=== PATIENT | male | born 1960 | race Caucasian/White ===

== ENCOUNTER 2023-08-15 08:01 | Emergency (ER) | payer BC, SELFPAY ==
[2023-08-15 08:07] VITALS: BP 155/101; PULSE 85; RESP 14; TEMP 36.1; O2SAT 96; BMI 27.5
--- NOTE | 2023-08-15 08:19 | CT_ITS ---
Patient: TK WELLER Facility:?[facility] Patient ID:?[id number] Site Patient ID:?[id number] Site :?[id number] Study:?CT-Abdomen/Pelvis WITHOUT-08/15/2023 9:12:59 AM Ordering Physician:JOHN Final Report: INDICATION: Lower back pain. Stones. COMPARISON: None TECHNIQUE: CT examination of the abdomen and pelvis was performed without intravenous contrast. Thin section axial images were obtained from the lung bases through the pubic symphysis. Oral contrast was not administered. Please note that all CT scans at this facility use dose modulation, iterative reconstruction, and/or weight-based dosing when appropriate to reduce radiation dose to as low as reasonably achievable. FINDINGS: LUNG BASES: The lung bases as visualized appear normal.The heart size is normal at the lung bases. LIVER/BILIARY SYSTEM:The liver is normal in size and configuration given the lack of intravenous contrast. There is no visible focal mass and there is no intra- or extra hepatic biliary ductal dilatation.The gall bladder appears normal. ADRENALS: Normal non-contrast appearance KIDNEYS, URETERS and BLADDER:Normal-sized kidneys. No visible calculi. No evidence of current or recent obstructive uropathy on either side. 1 centimeter low-density right renal lesion likely a cyst. The bladder as visualized appears normal SPLEEN:Normal non-contrast appearance. PANCREAS: Normal non-contrast appearance. RETROPERITONEUM and MESENTERY: There is no mass, adenopathy or aortic aneurysm. Atherosclerotic vascular calcification GASTROINTESTINAL SYSTEM: There is no evidence of diverticulitis, colitis, mechanical obstruction, or appendicitis. The small bowel as visualized appears normal.Diverticulosis, especially sigmoid PELVIS: No mass, adenopathy or free fluid. OSSEOUS STRUCTURES and ABDOMINAL WALL: Degenerative changes. There is a grade 1 to grade 2 spondylolytic spondylolisthesis of L5 on S1 with associated disc degeneration at L5-S1 and facet disease.No significant abdominal wall defect. INCIDENTAL: There is an incidentally visualized right scrotal hydrocele, less likely a large cystic lesion of the epididymis measuring 5.9 centimeter IMPRESSION: 1. There is no evidence of calcified calculus. There is no evidence of current or recent obstructive uropathy. 2. Diverticulosis. No evidence of diverticulitis, colitis or obstruction. 3. Grade 1-2 spondylolytic spondylolisthesis of L5 on S1 with associated disc degeneration at L5-S1 and facet osteoarthritis. 4. There is a low-density area within the right hemiscrotum measuring 5.9 centimeters likely a hydrocele. Please note that all CT scans at this facility use dose modulation, iterative reconstruction, and/or weight-based dosing when appropriate to reduce radiation dose to as low as reasonably achievable. Dictated by Álvaro Mcintyre MD @ 08/15/2023 9:22:56 AM Signed by:?Álvaro Mcintyre MD @08/15/2023 9:22:56 AM (Electronic Signature)
--- NOTE | 2023-08-15 08:20 | ED_ITS ---
HPI - Back Pain/Injury General Date Seen: 08/15/23 Chief Complaint: Back Injury/Pain Stated Complaint: Lower R back pain Time Seen by Provider: 08/15/23 08:19 Source: patient Mode of arrival: ambulatory Limitations: no limitations History of Present Illness HPI Narrative: Is a 62-year-old female presenting for right low flank pain. Is he states symptoms have been gone for 6 or 7 days in his is a small amount of pain that ranges well as to sharp in nature. States it is difficult to sit still with the pain. He is most comfortable standing up versus lying down and sitting down. Still thinks he has had something similar back in the late 90s but remembers that going away on its own. Went to urgent care yesterday and was given Toradol and had an x-ray done. He did state the Toradol helped quite a bit. Has been taking ibuprofen and Tylenol at home. No history of kidney stones. Denies fevers, chills, saddle anesthesia, urinary retention, incontinence, dysuria, hematuria. Pain does not radiate anywhere. Does not remember injuring himself prior to this occurring. Related Data Previous Rx's Medication Instructions Recorded prednisone 20 mg tablet 40 mg (2 x 20 mg) PO QDAY 5 days 08/14/23 #10 tabs cyclobenzaprine 10 mg tablet 10 mg PO TID PRN muscle spasm #15 08/15/23 tabs ketorolac 10 mg tablet 10 mg PO TID PRN pain 5 days #15 08/15/23 tabs Allergies Allergy/AdvReac Type Severity Reaction Status Date / Time No Known Drug Allergies Allergy Verified 08/14/23 09:49 Review of Systems Status of ROS: Reports: 10 or more systems reviewed and unremarkable except as noted in History and below [facility] Social History Smoking Status: Never smoker How often do you have a drink containing alcohol: monthly or less AUDIT-C Alcohol total score: 1 Non-prescribed substance use: denies use Exam Narrative: Exam Narrative: Const: Well-nourished, Well-developed, in moderate distress Eyes: PERRL, no conjunctival injection, and symmetrical lids HENT: Atraumatic external nose and ears. Moist mucous membranes. Neck: Symmetric, trachea midline, No thyromegaly. CVS: RRR, No murmurs or gallops. Peripheral pulses 2+ and equal in all extremities RESP: Unlabored respiratory effort. Clear to auscultation bilaterally. GI: Nontender, Nondistended, No rebound or guarding. MSK:Extremities w/o deformity, Normal Active ROM, right low back tenderness to palpation Skin: Warm, Dry. No rashes or lesions. Neuro: Normal Muscle tone, No focal neurological deficits. Psych: Awake, Alert, & Oriented x3. Appropriate mood and affect. Const: Vital Signs, click to edit/add: Vital Signs - 24 hr 08/15/23 08:07 Temperature 97.0 F L Pulse Rate [Pulse Oximeter] 85 Respiratory Rate 14 Blood Pressure [Ri ght Upper Arm] 155/101 H Pulse Oximetry 96 Oxygen Delivery Me thod Room Air Course Vital Signs Vital signs: Initial Vital Signs Temperature 97.0 F L 08/15/23 08:07 Temperature Source Temporal Artery Scan 08/15/23 08:07 Pulse Rate 85 08/15/23 08:07 Pulse Rhythm Regular 08/15/23 08:07 Respiratory Rate 14 08/15/23 08:07 Blood Pressure 155/101 H 08/15/23 08:07 Blood Pressure Mean 119 H 08/15/23 08:07 Blood Pressure Position Sitting 08/15/23 08:07 Pulse Oximetry 96 08/15/23 08:07 Oxygen Delivery Method Room Air 08/15/23 08:07 Vital Signs Temperature 97.0 F L 08/15/23 08:07 Pulse Rate 85 08/15/23 08:07 Respiratory Rate 14 08/15/23 08:07 Blood Pressure 155/101 H 08/15/23 08:07 Pulse Oximetry 96 08/15/23 08:07 Oxygen Delivery Method Room Air 08/15/23 08:07 Temperature 97.0 F L 08/15/23 08:07 Pulse Rate 85 08/15/23 08:07 Respiratory Rate 14 08/15/23 08:07 Blood Pressure 155/101 H 08/15/23 08:07 Pulse Oximetry 96 08/15/23 08:07 Oxygen Delivery Method Room Air 08/15/23 08:07 Medications Administered Medications: Discontinued Medications Generic Name Dose Route Start Last Admin Trade Name Freq PRN Reason Stop Dose Admin Ketorolac Tromethamine 30 mg 08/15/23 08:19 08/15/23 08:31 Ketorolac 30 Mg/Ml Inj IM 08/15/23 08:20 30 mg ONCE ONE Administration Morphine Sulfate 4 mg 08/15/23 08:27 08/15/23 08:35 Morphine 4 Mg/Ml Inj IM 08/15/23 08:28 Not Given ONCE ONE MDM - Back Pain/Injury MDM Narrative Medical decision making narrative: Patient is 62-year-old male presenting for back pain. The location and description of the symptoms is be some concern for a kidney stone. We will do a CT scan to better evaluate this. He is not having any urinary symptoms. Pain does not radiate anywhere. No red flag signs for cauda equina. CT scan returned showing grade 1-2 spondylitic spondylolisthesis of L5 on S1 with associated disc degeneration. This is consistent with where his pain is. This is likely was causing his pain. No evidence of nephrolithiasis. Patient was feeling better after the Toradol. He did not want morphine. Patient will be discharged home at this time and will follow-up with primary care provider on Friday if symptoms persist. He is agreeable to this plan. Imaging Data CT scan abdomen and pelvis: Radiologist's impression: 1. There is no evidence of calcified calculus. There is no evidence of current or recent obstructive uropathy. 2. Diverticulosis. No evidence of diverticulitis, colitis or obstruction. 3. Grade 1-2 spondylolytic spondylolisthesis of L5 on S1 with associated disc degeneration at L5-S1 and facet osteoarthritis. 4. There is a low-density area within the right hemiscrotum measuring 5.9 centimeters likely a hydrocele. Please note that all CT scans at this facility use dose modulation, iterative reconstruction, and/or weight-based dosing when appropriate to reduce radiation dose to as low as reasonably achievable. Dictated by Álvaro Mcintyre MD @ 08/15/2023 9:22:56 AM Discharge Plan Discharge Clinical Impression: Strain of lumbar region Qualifiers: Encounter type: initial encounter Qualified Code(s): S39.012A - Strain of muscle, fascia and tendon of lower back, initial encounter Patient Disposition: Home, Self-Care Condition: Improved Instructions: Back Pain (ED) Additional Instructions: I will prescribe you Toradol which you can take along side Tylenol. Do not take ibuprofen when your taking the Toradol as they are in the same class of drugs and can cause gastric ulcers. The muscle relaxer can cause some drowsiness. Follow-up with the primary care provider on Friday if symptoms are persisting for possible physical therapy. Tried stretch out the back as much as possible. Continue take the prednisone as previously prescribed. There is also what appears to be a hydrocele in your right scrotum. These are benign fluid collections and do not need evaluation unless they become symptomatic. Prescriptions: New ketorolac 10 mg tablet 10 mg PO TID PRN (Reason: pain) 5 Days Qty: 15 0RF cyclobenzaprine 10 mg tablet 10 mg PO TID PRN (Reason: muscle spasm) Qty: 15 0RF No Action prednisone 20 mg tablet 40 mg PO QDAY 5 Days Qty: 10 0RF Follow Up/Referrals: Provider,Not a Local [Referring] - Stand Alone Forms: MyHealth Info Instructions
[2023-08-15] MEDS: KETOROLAC 30 MG/ML inj IM (08:31)
[2023-08-15 10:02] VITALS: BP 155/101; PULSE 85; RESP 14; TEMP 36.1
== END 2023-08-15 10:02 | disposition home or self-care (01) ==
PROVIDERS: Emergency Provider Student in an Organized Health Care Education/Training Program; PCP Family Medicine
DX: S39.012A Strain of muscle, fascia and tendon of lower back, initial encounter (principal)
CPT/HCPCS: 74176; 96372; 99282; 99283; J1885